=== PATIENT | female | born 1955 | race Caucasian/White ===

== ENCOUNTER → 2024-04-14 06:18 | Day surgery (SDC) | payer OTHER, SELFPAY | LOC: GI 06:18 | PROVIDERS: ATTENDING PHYSICIAN Specialist | DX: Z12.11 Encounter for screening for malignant neoplasm of colon (principal); K57.30 Diverticulosis of large intestine without perforation or abscess without bleeding; D12.4 Benign neoplasm of descending colon; D12.5 Benign neoplasm of sigmoid colon; Z86.010 Personal history of colon polyps | CPT/HCPCS: 45385; 88305 ==

== ENCOUNTER 2025-02-26 11:15 | Emergency (ER) | payer OTHER, SELFPAY ==
[2025-02-26 11:23] VITALS: BP 155/92
--- NOTE | 2025-02-26 12:31 | ED.GENMED ---
History of Present Illness
General
Chief Complaint: Skin Surface Trauma
Source: patient
Exam Limitations: none
Time Seen by Provider: 02/26/25 12:24
History of Present Illness
History of Present Illness:
See MDM
Past History
Past History
ED Past Medical History: None
ED Past Surgical History: None
Social History
Tobacco: Non-smoker
Alcohol: None
Phy Exam
Physical Exam
Physical Exam:
See MDM
Course
Orders/Labs/Results
Orders:
Orders
02/26/25 12:39
Lidocaine 4% Cream [Lmx 4] 1 applic TOPICAL NOW STA
02/26/25 12:40
Clindamycin HCl [Cleocin] 300 mg PO NOW STA
Lidocaine/Epinephrine/Tetracai [Let Topical Anesthetic Gel] 3 ml .ROUTE .STK-MED ONE
Tetanus/Diphth/Acelpertussis [Adacel] 0.5 ml IM .ONCE ONE
02/26/25 12:41
Lidocaine/Epinephrine/Tetracai [Let Topical Anesthetic Gel] 3 ml TOPICAL NOW STA
Vital Signs
Initial and Last Documented VS:
Initial Vital Signs
Temp Pulse Resp BP Pulse Ox
98.0 F 76 16 155/92 98
02/26/25 11:23 02/26/25 11:23 02/26/25 11:23 02/26/25 11:23 02/26/25 11:23
Last Documented Vital Signs
Temp Pulse Resp BP Pulse Ox
98.0 F 76 16 155/92 98
02/26/25 11:23 02/26/25 11:23 02/26/25 11:23 02/26/25 11:23 02/26/25 12:33
MDM/Problems Addressed
Differential Diagnosis Includes:
Note:
CHIEF COMPLAINT(S)
Injury to finger with a flap of skin after being pinched by a beach umbrella.
HISTORY OF PRESENT ILLNESS
The patient is a 69-year-old female who presented with an injury to the finger sustained [place] ago [place]. The injury occurred when her finger was pinched by a beach umbrella, resulting in a flap of skin. The special needs tutor at the scene
cleaned the wound, applied a stack of gauze, and wrapped it with a waterproof bandage. The patient swam in the [place] and removed the bandage that morning. On examination, a piece of skin appeared to have folded on itself. The patient reported
attempting to soak the finger for about an hour at home, assisted by a friend. The provider discussed numbing the affected area and trimming the non-viable skin flap as a part of the management plan. The patients discomfort and the visual impact of
the injury were noted, and the provider aimed to address these issues while considering the patient�s emotional response.
PHYSICAL EXAM
General: Alert, no acute distress.
Skin: Warm, dry.
Head: Normocephalic, atraumatic
Neck: Appears supple, trachea midline.
Eyes, Ears, Nose, Mouth, and Throat: Oral mucosa moist.
Cardiovascular: No signs of cyanosis
Respiratory: Respirations are non-labored.
Abdomen: Non-distended
Musculoskeletal: Injury to the palmar aspect of left second digit along PIP. Mild macerated skin noted and skin flap noted as well. Cap refill less than 2 seconds in range of motion and sensation grossly intact
Neurological: No focal neurological deficit observed.
Psychiatric: Cooperative, appropriate mood and affect.
PLAN
- Numb the affected finger to alleviate sensation before treatment.
- Debridement to address the folded flap of skin.
- Consider time intervals to ensure adequate anesthesia.
DIFFERENTIAL DIAGNOSIS
The Differential Diagnosis includes, in no particular order and is not limited to:
1. Laceration with exposed subcutaneous tissue.
2. Traumatic skin tear.
3. Partial-thickness burn.
4. Foreign body embedded in wound.
5. Fingertip avulsion.
6. Subungual hematoma.
7. Infected laceration.
8. Digital nerve injury.
9. Nail bed injury.
10. Fracture of the distal phalanx.
SUMMARY OF ENCOUNTER
The 69-year-old female presented following an injury to her finger, sustained when it was pinched by a beach umbrella. The injury led to a visible flap of skin, for which initial first aid was administered at the scene. In the emergency department,
after numbing the affected finger, the non-viable skin flap was debrided. Gel foam was applied to the exposed area for protection and healing. Prophylactic antibiotic therapy was initiated with clindamycin to prevent infection.
PROCEDURES
Debridement of the non-viable skin flap on the injured finger was performed after local anesthesia was administered.
PATIENT EDUCATION AND COUNSELING
The patient was educated about proper wound care and the importance of keeping the area clean and dry. Return precautions were discussed to ensure prompt attention in the case of signs of infection or deterioration. Counseling regarding prophylactic
antibiotic usage and potential side effects was provided.
FOLLOW-UP INSTRUCTIONS
The patient was advised to follow up with a specialist in hand injuries to ensure proper healing and function [employer].
MEDICATION RECONCILIATION
One dose of tetanus toxoid was administered. Clindamycin was prescribed prophylactically to prevent infection.
MEDICAL DECISION MAKING
-Complexity of Data Reviewed:
Differential diagnoses considered included laceration with exposed subcutaneous tissue, traumatic skin tear, fingertip avulsion, infected laceration, and digital nerve injury.
-Data:
Category 1
The complete removal of the previous medical dressing and assessment of the injury required direct inspection, enabling proper debridement.
Category 2
No independent interpretation of imaging or EKG was noted.
Category 3
Discussion of the management of the wound care with the patient included advising the use of prophylactic antibiotics and arranging follow-up with a hand specialist.
-Risk:
A decision was made for prophylactic antibiotic management due to the potential risk of infection given the nature of the injury. Additionally, the tetanus immunization was updated to prevent complications. Consideration of admission/observation was
not necessary as the patients condition was deemed suitable for outpatient management with close follow-up.
DIAGNOSIS
Laceration of finger, initial encounter (ICD-10: S61.219A)
Tetanus prophylaxis (ICD-10: Z23)
*Pulse Oximetry
SaO2: 98
Oxygen Mode of Delivery: Room air
Patient hypoxic: no
*Critical Care Note
Total Time (30-74mins, 75-104mins- exclusive of procedures): Not Applicable
ED Attending Note
-
Portions of this chart may have been created with voice recognition software.� Occasional wrong word or��sound alike� substitutions may have occurred due to the inherent limitations of voice recognition software.
Discharge Plan
Departure
Discharge Problem:
Avulsion of skin of finger
Instructions: Wound Care (DC)
Prescriptions:
New
clindamycin HCl 300 mg capsule
300 mg PO TID 7 Days Qty: 21 0RF
oxycodone 5 mg tablet
5 mg PO Q8H PRN (Reason: Pain) Qty: 7 0RF
Referrals:
Lazaro Stern MD [Family Provider, Family Practice]
Ronnie Gu MD [Active, Orthopedics]
Activity Restrictions/Additional Instructions:
Please return for any worsening symptoms.
You may return at any time if you have further concerns.
Please follow up with your doctor at the first available appointment, preferably this week.
Gelfoam was placed on the wound. This will fall off on its own.
Thank you for choosing [facility].
Interventions
Interventions:
*Risk Screen - Suicide Last Done: 02/26/25 11:23
*General Assessment Last Done: 02/26/25 11:39
*Neglect/Abuse Screening Last Done: 02/26/25 11:23
*ED- Fall Risk Assessment Last Done: 02/26/25 11:39
*ED COVID-19 Vaccine History Last Done: 02/26/25 11:39
ED-Skin Assessment Last Done: 02/26/25 11:39
Discharge Date and Time
Print Language: PALAUAN
[2025-02-26] MEDS: CLEOCIN 300 MG PO (12:49)
[2025-02-26] MEDS: ADACEL 0.5 ML IM (12:49)
[2025-02-26] MEDS: LET TOPICAL ANESTHETIC GEL 3 ML TOPICAL (12:51)
[2025-02-26 13:25] VITALS: BP 143/78
== END 2025-02-26 13:25 | disposition home or self-care (01) ==
LOC: EMR 11:15
PROVIDERS: EMERGENCY PHYSICIAN Student in an Organized Health Care Education/Training Program; FAMILY PHYSICIAN Family Medicine
DX: S61.211A Laceration without foreign body of left index finger without damage to nail, initial encounter (principal); Z23 Encounter for immunization; W23.1XXA Caught, crushed, jammed, or pinched between stationary objects, initial encounter; Y92.832 Beach as the place of occurrence of the external cause
CPT/HCPCS: 99284; 11420; 90471; 90715